=== PATIENT | male | born 1970 | race African-American/Black ===

== ENCOUNTER 2025-05-25 08:51 | Outpatient (CLI) | payer BC, SELFPAY ==
--- NOTE | ~2025-05-25 | XR_ITS ---
Right Shoulder Technique: AP and axillary views were obtained. Clinical History: Pain Findings: No fracture or dislocation is seen. Osseous alignment is anatomic. The glenohumeral and acr omioclavicular joint spaces are preserved. Soft tissues are unremarkable. Impression: Unremarkable right shoulder radiographs. Reviewed, dictated and finalized at [facility]. Impression: Unremarkable right shoulder radiographs.
--- OUTSIDE RECORDS SUMMARY | 2025-05-25 09:19 | XMS_ITS | Encounter Summary ---
Author Organization [facility] Address [address] [place] [address] Care Team Providers Care Head Silverman Name Role Phone Zaid Napier MD Primary Care Provider Encounter Details Date Type Department Care Team (Late st Contact Info) Description 05/01/2005 Outpatient Historical [facility] Internal Medicine [address] [place] [phone] Zaid Napier MD [address] [place] [address] Social History Tobacco Use Types Packs/Day Years Used Date Smoking Tobacco: Never Assessed Sex and Gender Information Value Date Recorded Sex Assigned at Not on file 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 Gender Identity Not on file Sexual Orientation Not on file documented as of this encounter Plan of Treatment Upcoming Encounters Date Type Department Care Team (Late st Contact Info) Description 07/24/2025 3:00 PM CDT Office Visit [facility] [address] [place] [address] Zaid Napier MD [address] [place] [address] documented as of this encounter Visit Diagnoses Not on filedocumented in this encounter Care Teams Head Silverman Relationship Specialty Start Date End Date Zaid Napier MD [address] [facility] [address] [place] [address] PCP - General 06/11/06 documented as of this encounter
--- OUTSIDE RECORDS SUMMARY | 2025-05-25 09:19 | XMS_ITS | Encounter Summary ---
Author Organization [facility] Address [address] [place] [address] Care Team Providers Care Osteopathic Physician Name Role Phone Zaid Napier MD Primary Care Provider [phone] Encounter Details Date Type Department Care Team (Late st Contact Info) Description 05/17/2007 Outpatient Historical [facility] Internal Medicine [address] [place] [address] Zaid Napier MD [address] [place] [address] Social History Tobacco Use Types Packs/Day Years Used Date Smoking Tobacco: Never Assessed Sex and Gender Information Value Date Recorded Sex Assigned at Not on file 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 Gender Identity Not on file Sexual Orientation Not on file documented as of this encounter Last Filed Vital Signs Vital Sign Reading Time Taken Comments Blood Pressure 120/80 05/17/2007 4:15 PM CDT Pulse 67 05/17/2007 4:15 PM CDT Temperature - - Respiratory Rate - - Oxygen Saturation - - Inhaled Oxygen Concentration - - Weight 84.4 kg (186 lb) 05/17/2007 4:15 PM CDT Height - - Body Mass Index - - documented in this encounter Plan of Treatment Upcoming Encounters Date Type Department Care Team (Late st Contact Info) Description 07/24/2025 3:00 PM CDT Office Visit [facility] Primary Care [facility] Alcaraz [address] [place] [address] Zaid Napier MD [address] [place] [address] documented as of this encounter Visit Diagnoses Not on filedocumented in this encounter Care Teams Osteopathic Physician Relationship Specialty Start Date End Date Zaid Napier MD [address] [place] [phone] PCP - General 06/11/06 documented as of this encounter
--- OUTSIDE RECORDS SUMMARY | 2025-05-25 09:19 | XMS_ITS | Encounter Summary ---
[facility] Organization [facility] Address 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 Discussed treatment for outbreaks or suppression. Will avoid suppression at his request. Also, he does haveelevated LFTs which may make monitoring difficult. He will call on 07/12 with pharmacy number. [email or web address] 07/10/07 01:33 pm ADDITIONAL TEST REQUESTS/ORDERS: . 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 lamprl 07/12/07 11:36 am STAFF FOLLOW UP: Spoke with patient and gave the following message. Pharmacy number: [phone]. Left message on voice mail at pharmacy. Spoke with patient - aware/rll Electronically Signed by: Rosemarie Almanzar on Thursday, July 12, 2007 documented in this encounter Plan of Treatment Upcoming Encounters Date Type Department Care Team (Late st Contact Info) Description 07/24/2025 3:00 PM CDT Office Visit [facility] Primary Care [facility] [address] [place] [address] Zaid Napier MD [address] [place] [address] documented as of this encounter Visit Diagnoses Not on filedocumented in this encounter Care Teams Senior Clerk Relationship Specialty Start Date End Date Zaid Napier MD [address] [place] [address] PCP - General 06/11/06 documented as of this encounter
--- OUTSIDE RECORDS SUMMARY | 2025-05-25 09:19 | XMS_ITS | Encounter Summary ---
Author Organization [facility] Address 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 Gender Identity Not on file Sexual Orientation Not on file documented as of this encounter Plan of Treatment Upcoming Encounters Date Type Department Care Team (Late st Contact Info) Description 07/24/2025 3:00 PM CDT Office Visit [facility] [address] [place] [address] Zaid Napier MD [address] [place] [address] documented as of this encounter Visit Diagnoses Diagnosis Cervicalgia- Primary documented in this encounter Care Teams Hall Manager Relationship Specialty Start Date End Date Zaid Napier MD [address] [place] [address] PCP - General 06/11/06 documented as of this encounter
--- OUTSIDE RECORDS SUMMARY | 2025-05-25 09:19 | XMS_ITS | Encounter Summary ---
Author Organization [facility] Address [address] [place] [address] Care Team Providers Care Dining Service Supervisor Name Role Phone Zaid Napier MD Primary Care Provider [phone] Encounter Details Date Type Department Care Team (Late st Contact Info) Description 06/12/2006 Outpatient Historical [facility] Internal Medicine [address] [place] [phone] Zaid Napier MD [address] [place] [address] Social History Tobacco Use Types Packs/Day Years Used Date Smoking Tobacco: Never Assessed Sex and Gender Information Value Date Recorded Sex Assigned at Not on file 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 Gender Identity Not on file Sexual Orientation Not on file documented as of this encounter Last Filed Vital Signs Vital Sign Reading Time Taken Comments Blood Pressure 132/80 06/12/2006 3:00 PM CDT Pulse 74 06/12/2006 3:00 PM CDT Temperature - - Respiratory Rate - - Oxygen Saturation - - Inhaled Oxygen Concentration - - Weight 85.7 kg (189 lb) 06/12/2006 3:00 PM CDT Height - - Body Mass Index - - documented in this encounter Plan of Treatment Upcoming Encounters Date Type Department Care Team (Late st Contact Info) Description 07/24/2025 3:00 PM CDT Office Visit [facility] Primary Care OFallrosanne Alcaraz [address] [place] [address] Zaid Napier MD [address] [place] [address] documented as of this encounter Visit Diagnoses Not on filedocumented in this encounter Care Teams Dining Service Supervisor Relationship Specialty Start Date End Date Zaid Napier MD [address] [place] [address] PCP - General 06/11/06 documented as of this encounter
--- OUTSIDE RECORDS SUMMARY | 2025-05-25 09:19 | XMS_ITS | Encounter Summary ---
Author Organization [facility] Address [address] [place] [address] Care Team Providers Care Machine Feeder Raw Stock Name Role Phone Zaid Napier MD Primary Care Provider [phone] Encounter Details Date Type Department Care Team (Late st Contact Info) Description 07/14/2007 Orders Only [facility] Internal Medicine [address] [place] [address] Zaid Napier MD [address] [facility] [address] [place] [address] Social History Tobacco Use Types Packs/Day Years Used Date Smoking Tobacco: Never Assessed Sex and Gender Information Value Date Recorded Sex Assigned at Not on file 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 ALTERNATIVE PHONE NUMBER: [phone] WHO CALLED: Patient called. CURRENT ALLERGY LIST: NK PHARMACY NUMBER: [phone] PROBLEMS: CONGESTION: Patient complains of nasal congestion. COUGH:Patient complains of cough. productive cough - yellow. RUNNY NOSE: Patient complains of runny nose. yellow drainage. Allergy symptom: Sneezing, congestion. Denies any fever/chills. No sore throat. No ear pain. No wheezing. Duration x 7 days. Would like RX/rll SECTION 1: DOCTOR`S RESPONSE: rosalind 07/14/07 at 04:37 pm MEDICATIONS: Call in to Pharmacy ZITHROMAX Z-ALEN ORAL TABLET 250 MG, Per package direction, 1 Dispensed, status: NEW PRESCRIPTION, 07/14/2007. FINAL ACTION: lamprl 07/14/07 at 04:39 pm Spoke with patient 07/14/07 at 04:40 pm. patient aware/rll Called pharmacy at 07/14/07 at 04:39 pm. message on voice mail/rll Electronically Signed by: Rosemarie Almanzar on Thursday, July 14, 2007 documented in this encounter Plan of Treatment Upcoming Encounters Date Type Department Care Team (Late st Contact Info) Description 07/24/2025 3:00 PM CDT Office Visit [facility] Primary Care [facility] [address] [place] [address] Zaid Napier MD [address] [place] [address] documented as of this encounter Visit Diagnoses Not on filedocumented in this encounter Care Teams Machine Feeder Raw Stock Relationship Specialty Start Date End Date Zaid Napier MD [address] [facility] [address] PCP - General 06/11/06 documented as of this encounter
--- OUTSIDE RECORDS SUMMARY | 2025-05-25 09:19 | XMS_ITS | Encounter Summary ---
Author Organization [facility] Address [address] [place] [address] Care Team Providers Care Medication Technician Name Role Phone Zaid Napier MD Primary Care Provider Encounter Details Date Type Department Care Team (Latest Contact Info) Description 06/11/2006 Outpatient Historical [facility] Internal Medicine 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 Gender Identity Not on file Sexual Orientation Not on file documented as of this encounter Plan of Treatment Upcoming Encounters Date Type Department Care Team (Late st Contact Info) Description 07/24/2025 3:00 PM CDT Office Visit [facility] Primary Care OF[facility]on [address] [place] [address] Zaid Napier MD [address] [place] [address] documented as of this encounter Procedures Procedure Name Priority Date/Time Associated Diagnosis Comments HEPATITIS B SURFACE AB, QUAL Routine 06/11/2006 4:48 PM CDT HEPATITIS C ANTIBODY Routine 06/11/2006 4:48 PM CDT URINALYSIS W/REFLEX MICROSCOPIC Routine 06/11/2006 4:23 PM CDT PSA Routine 06/11/2006 4:23 PM CDT FERRITIN Routine 06/11/2006 4:23 PM CDT LIPID PANEL Routine 06/11/2006 4:23 PM CDT COMPREHENSIVE METABOLIC PANEL Routine 06/11/2006 4:23 PM CDT documented in this encounter Results * HEPATITIS B SURFACE AB (06/11/2006 4:48 PM CDT) HEPATITIS B SURFACE AB <5 mIU/mL INTERFACE SYSTEM Comment: ACCORDING TO CURRENT CDC GUIDELINES, VALUES GREATER THAN OR EQUAL TO 10 MIU/ML INDICATE IMMUNITY. Lab test performed by: [employer] [id number] COLE MCGREGOR MD 06/11/2006 4:48 PM CDT Zaid Napier MD CHEMISTRY ORDERABLES Final Re sult Performing Organization Address [facility] de Phone Number INTERFACE SYSTEM Refer to clinic/hospital department * HEPATITIS C ANTIBODY (06/11/2006 4:48 PM CDT) HEPATITIS C AB NON-REACT SONIA NON-REACT SONIA INTERFACE SYSTEM SIGNAL TO CUT OFF 0.13 <1.00 IN TERFACE SYSTEM Comment: [facility] test performed by: [facility] [id number] [place] [id number] COLE MCGREGOR MD 06/11/2006 4:48 PM CDT Zaid Napier MD CHEMISTRY ORDERABLES Final Re sult Performing Organization Address [facility]/ZIP Co de Phone Number INTERFACE SYSTEM Refer to clinic/hospital department * FERRITIN (06/11/2006 4:23 PM CDT) FERRITIN 334 30 - 400 ng/mL INTERFACE SYSTEM 06/11/2006 4:23 PM CDT Zaid Napier MD CHEMISTRY ORDERABLES Final Re sult Performing Organization Address [facility] Phone Number INTERFACE SYSTEM Refer to clinic/hospital department * URINALYSIS (06/11/2006 4:23 PM CDT) COLOR UA Yellow INTERFACE SYSTEM CLARITY UA Clear Clear INTERFACE SYSTEM SPECIFIC GRAVITY UA 1.005 1.001 - 1.035 INTERFACE SYSTEM PH UA 6.5 5.0 - 8.0 INTERFACE SYSTEM LEUKOCYTE ESTERASE UA Negative Negative INTERFACE SYSTEM NITRITE UA Negative Negative INTERFACE SYSTEM PROTEIN UA Negative Negative INTERFACE SYSTEM GLUCOSE UA Negative Negative INTERFACE SYSTEM KETONES UA Negative Negative INTERFACE SYSTEM UROBILINOGEN UA <1 <=1 mg/dL INTE RFACE SYSTEM BILIRUBIN UA Negative Negative INTERFA CE SYSTEM BLOOD UA Negative Negative INTERFACE SYSTEM 06/11/2006 4:23 PM CDT Zaid Napier MD URINE ORDERABLES Final Result Performing Organization Address [facility] INTERFACE SYSTEM Refer to clinic/hospital department * (ABNORMAL) COMPREHENSIVE METABOLIC PANEL (06/11/2006 4:23 PM CDT) GLUCOSE 89 65 - 99 mg/dL INTERFACE SYSTEM CREATININE 1.2 0.5 - 1.3 mg/dL INTERFACE SYSTEM ALKALINE PHOSPHATASE 88 40 - 129 U/L INTERFACE SYSTEM AST 39(H) 12 - 38 U/L INTERFACE SYSTEM ALT 59(H) 0 - 41 U/L INTERFACE SYSTEM TOTAL PROTEIN 8.2 6.3 - 8.6 g/dL INTERFACE SYSTEM ALBUMIN 4.8 3.4 - 4.8 g/dL INTERFACE SYSTEM BILIRUBIN TOTAL 0.5 0.2 - 1.0 mg/dL INTERFACE SYSTEM BUN 11 6 - 20 mg/dL INTERFACE SYSTEM SODIUM 139 135 - 145 mmol/L INTERFACE SYSTEM POTASSIUM 4.3 3.5 - 4.9 mmol/L INTERFACE SYSTEM CHLORIDE 99 96 - 108 mmol/L INTERFACE SYSTEM CO2 27 22 - 30 mmol/L INTERFACE SYSTEM CALCIUM 10.3(H) 8.6 - 10.2 mg/dL INTERFACE SYSTEM Comment:Verified by repeat a nalysis. 06/11/2006 4:23 PM CDT Zaid Napier MD CHEMISTRY ORDERABLES Final Re sult Performing Organization Address [facility] Phone Number INTERFACE SYSTEM Refer to clinic/hospital department * (ABNORMAL) LIPID PANEL (06/11/2006 4:23 PM CDT) CHOLESTEROL 284(H) 100 - 199 mg/dL INTERFACE SYSTEM TRIGLYCERIDE 92 10 - 149 mg/dL INTERFACE SYSTEM HDL 87(H) 40 - 59 mg/dL INTERFACE SYSTEM LDL CALCULATED 179(H) <=99 mg/dL INTERFACE SYSTEM CHOL/HDL RATIO 3.3 2.0 - 5.0 INTER FACE SYSTEM LIPID PANEL COMMENT See Below INTERFACE SYSTEM Comment: The adult ATP and pediatric NCEP classifications for lipids are available on the [facility] Intranet at: [email or web address] veterans [email or web address] georgia medical [email or web address] Select: Lab Policies and Procedures Select: Reference Ranges - Lipids 06/11/2006 4:23 PM CDT Zaid Napier MD CHEMISTRY ORDERABLES Final Re sult Performing Organization Address [facility] Phone Number INTERFACE SYSTEM Refer to clinic/hospital department * PSA (06/11/2006 4:23 PM CDT) PSA 0.3 0.0 - 4.0 ng/mL INTERFACE SYSTEM Comment:Performed on [employer] E170 System 06/11/2006 4:23 PM CDT Zaid Napier MD CHEMISTRY ORDERABLES Final Re sult Performing Organization Address [facility] Co de Phone Number INTERFACE SYSTEM Refer to clinic/hospital department documented in this encounter Visit Diagnoses Diagnosis Family history of malignant neoplasm of prostate- Primary documented in this encounter Care Teams Medication Technician Relationship Specialty Start Date End Date Zaid Napier MD [address] [facility] [address] [place] [phone] PCP - General 06/11/06 documented as of this encounter
--- OUTSIDE RECORDS SUMMARY | 2025-05-25 09:19 | XMS_ITS | Encounter Summary ---
Author Organization [facility] Address [address] [place] [address] Care Team Providers Care Platform Mill Supervisor Name Role Phone Zaid Napier MD Primary Care Provider Encounter Details Date Type Department Care Team (Late st Contact Info) Description 06/03/[address] 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 Gender Identity Not on file Sexual Orientation Not on file documented as of this encounter Plan of Treatment Upcoming Encounters Date Type Department Care Team (Late st Contact Info) Description 07/24/2025 3:00 PM CDT Office Visit [facility] [address] [place] [address] Zaid Napier MD [address] [place] [address] documented as of this encounter Visit Diagnoses Not on filedocumented in this encounter Care Teams Platform Mill Supervisor Relationship Specialty Start Date End Date Zaid Napier MD [address] [facility] [address] [place] [address] PCP - General 06/11/06 documented as of this encounter
--- OUTSIDE RECORDS SUMMARY | 2025-05-25 09:19 | XMS_ITS | Encounter Summary ---
Author Organization [facility] Address [address] [place] [address] Care Team Providers Care Nanofabrication Specialist Name Role Phone Zaid Napier MD Primary Care Provider Encounter Details Date Type Department Care Team (Late st Contact Info) Description 06/03/2007 Outpatient Historical [facility] Internal Medicine [address] [place] [address] Zaid Napier MD [address] [place] [address] Social History Tobacco Use Types Packs/Day Years Used Date Smoking Tobacco: Never Assessed Sex and Gender Information Value Date Recorded Sex Assigned at Not on file 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 Gender Identity Not on file Sexual Orientation Not on file documented as of this encounter Plan of Treatment Upcoming Encounters Date Type Department Care Team (Late st Contact Info) Description 07/24/2025 3:00 PM CDT Office Visit [facility] [address] [place] [address] Zaid Napier MD [address] [place] [address] documented as of this encounter Visit Diagnoses Not on filedocumented in this encounter Care Teams Nanofabrication Specialist Relationship Specialty Start Date End Date Zaid Napier MD [address] [facility] [address] [place] [address] PCP - General 06/11/06 documented as of this encounter
--- OUTSIDE RECORDS SUMMARY | 2025-05-25 09:19 | XMS_ITS | Encounter Summary ---
Author Organization [facility] Address 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 Gender Identity Not on file Sexual Orientation Not on file documented as of this encounter Plan of Treatment Upcoming Encounters Date Type Department Care Team (Late st Contact Info) Description 07/24/2025 3:00 PM CDT Office Visit [facility] Primary Care OFcameron Her [address] [place] [address] Zaid Napier MD [address] [place] [address] documented as of this encounter Procedures Procedure Name Priority Date/Time Associated Diagnosis Comments IRON PANEL Routine 07/24/2006 7:50 AM CDT HEPATITIS B SURFACE ANTIGEN Routine 07/24/2006 7:50 AM CDT SMOOTH MUSCLE ANTIBODY Routine 6 7:50 AM CDT HEPATITIS C ANTIBODY Routine 07/24/2006 7:50 AM CDT HEPATITIS B CORE IGM Routine 07/24/2006 7:50 AM CDT HEPATITIS A IGM Routine 07/24/2006 7:50 AM CDT CERULOPLASMIN Routine 07/24/2006 7:50 AM CDT CELIAC DISEASE ANTIBODIES Routine 07/24/2006 7:50 AM CDT ALPHA 1 ANTITRYPSIN Routine 07/24/2006 7 :50 AM CDT JOEY SCREEN W/REFLEX Routine 07/24/2006 7 :50 AM CDT FERRITIN Routine 07/24/2006 7:50 AM CDT documented in this encounter Results * IRON PANEL (07/24/2006 7:50 AM CDT) IRON 143 45 - 160 ug/dL INTERFACE SYSTEM TRANSFERRIN 229 200 - 360 mg/dL INTERFACE SYSTEM IRON % SATURATION 49 20 - 50 % INTERFACE SYSTEM TIBC 291 250 - 450 ug/dL INTERFACE SYSTEM 07/24/2006 7:50 AM CDT Daniel Llanos MD CHEMISTRY ORDERABLES Final Re sult Performing Organization Address City/State/[facility] Co de Phone Number INTERFACE SYSTEM Refer to clinic/hospital department * FERRITIN (07/24/2006 7:50 AM CDT) FERRITIN 304 30 - 400 ng/mL INTERFACE SYSTEM 07/24/2006 7:50 AM CDT us Daniel Llanos MD CHEMISTRY ORDERABLES Final Re sult Performing Organization Address City/State/[facility] Phone Number INTERFACE SYSTEM Refer to clinic/hospital department * ALPHA 1 ANTITRYPSIN (07/24/2006 7:50 AM CDT) ALPHA 1 ANTITRYPSIN 113 83 - 199 mg/dL INTERFACE SYSTEM Comment: Lab test performed by: [email or web address] [address] COLE MCGREGOR MD 07/24/2006 7:50 AM CDT Daniel Llanos MD CHEMISTRY ORDERABLES Final Re sult Performing Organization Address [facility] Phone Number INTERFACE SYSTEM Refer to clinic/hospital department * CERULOPLASMIN (07/24/2006 7:50 AM CDT) CERULOPLASMIN 36 18 - 36 mg/dL INTERFACE SYSTEM Comment: Lab test performed by: [email or web address] [address] COLE MCGREGOR MD 07/24/2006 7:50 AM CDT Daniel Llanos MD CHEMISTRY ORDERABLES Final Re sult Performing Organization Address [facility] Phone Number INTERFACE SYSTEM Refer to clinic/hospital department * (ABNORMAL) SMOOTH MUSCLE ANTIBODY (07/24/2006 7:50 AM CDT) SMOOTH MUSCLE AB (ACTIN) IGG 27(H) Units INTERFACE SYSTEM Comment: Reference Range: <20 NEGATIVE 20-30 WEAK POSITIVE >30 HIGH POSITIVE Anti-smooth muscle antibodies (Anti-SMA) were previously tested for by indirect immunofluorescence (IF) using rat stomach as antigen. The smooth muscle in these sections contains numerous proteins, including: microfilaments (which contain F-actin), intermediate filaments, and microtubules. Of these proteins, F-actin has the closest association with autoimmune hepatitis type 1 (AIH 1). To enhance our testing specificity for AIH type 1, immunofluorescence has been replaced by an MIRANDA based assay to purified F-actin. IgG antibodies to F-actin are present in approximately 75% of patients with AIH type 1, approximately 65% of patients with autoimmune cholangitis, approximately 30% of patients with primary biliary cirrhosis (PBS), and approximately 2% of healthy controls. High values are closely correlated with AIH type 1. Lab test performed by: [facility] [id number] [place] [address] Karina GUAMAN MD 07/24/2006 7:50 AM CDT Daniel Llanos MD CHEMISTRY ORDERABLES COM Eva l Result Performing Organization Address City/[facility] de Phone Number INTERFACE SYSTEM Refer to clinic/hospital department * CELIAC DISEASE ANTIBODIES (07/24/2006 7:50 AM CDT) TRANSGLUTAMINASE IGA AB <3 <5 U/mL INTERFACE SYSTEM Comment: Reference range: <5 U/mL Negative 5-8 U/mL Equivocal >8 U/mL Positive Lab test performed by: [facility] [address] STEPHEN FLETCHER MD GLIADIN IGA AB 5 <11 U/mL INTER FACE SYSTEM Comment: Reference Range: <11 U/mL Negative 11-17 U/mL Equivocal >17 U/mL Positive Lab test performed by: [facility] [address] STEPHEN FLETCHER MD IGA 197 81 - 463 mg/dL INTERFACE SYSTEM Comment: Lab test performed by: [facility] [address] STEPHEN FLETCHER MD 07/24/2006 7:50 AM CDT Daniel Llanos MD CHEMISTRY ORDERABLES Final Re sult Performing Organization Address [facility] Co de Phone Number INTERFACE SYSTEM Refer to clinic/hospital department * JOEY (07/24/2006 7:50 AM CDT) JOEY SCREEN NEGATIVE NEGATIVE INTERFACE SYSTEM Comment: [facility] [address] [place] [address] COLE MCGREGOR MD 07/24/2006 7:50 AM CDT us Daniel Llanos MD CHEMISTRY ORDERABLES Final Re sult Performing Organization Address [facility] Phone Number INTERFACE SYSTEM Refer to clinic/hospital department * HEPATITIS B CORE IGM (07/24/2006 7:50 AM CDT) HEPATITIS B CORE IGM NON-REACT SONIA NON-REACT SONIA INTERFACE SYSTEM Comment: Lab test performed by: [email or web address] [address] COLE MCGREGOR MD 07/24/2006 7:50 AM CDT us Daniel Llanos MD CHEMISTRY ORDERABLES Final Re sult Performing Organization Address [facility] Phone Number INTERFACE SYSTEM Refer to clinic/hospital department * HEPATITIS C ANTIBODY (07/24/2006 7:50 AM CDT) HEPATITIS C AB NON-REACT SONIA NON-REACT SONIA INTERFACE SYSTEM SIGNAL TO CUT OFF 0.06 <1.00 IN TERFACE SYSTEM Comment: Lab test performed by: [email or web address] [id number] MCGREGOR MD 07/24/2006 7:50 AM CDT us Daniel Llanos MD CHEMISTRY ORDERABLES Final Re sult Performing Organization Address [facility] Phone Number INTERFACE SYSTEM Refer to clinic/hospital department * HEPATITIS A IGM (07/24/2006 7:50 AM CDT) HEPATITIS A IGM NON-REACT SONIA NON-REACT SONIA INTERFACE SYSTEM Comment: Lab test performed by: [email or web address] [address] COLE MCGREGOR MD 07/24/2006 7:50 AM CDT us Daniel Llanos MD CHEMISTRY ORDERABLES Final Re sult Performing Organization Address [facility] Phone Number INTERFACE SYSTEM Refer to clinic/hospital department * HEPATITIS B SURFACE ANTIGEN (07/24/2006 7:50 AM CDT) HEPATITIS B SURFACE AG NON-REACT SONIA NON-REACT SONIA INTERFACE SYSTEM Comment: Lab test performed by: [facility] [address] [place] [address] COLE MCGREGOR MD 07/24/2006 7:50 AM CDT Daniel Llanos MD CHEMISTRY ORDERABLES Final Re sult INTERFACE SYSTEM Refer to clinic/hospital department documented in this encounter Visit Diagnoses Diagnosis Nonspecific elevation of levels of transaminase or lactic acid dehydrogenase (LDH)- Primary documented in this encounter Care Teams Epic Cupid Analyst Relationship Specialty Start Date End Date Zaid Napier MD [address] [facility] [address] [place] [address] PCP - General 06/11/06 documented as of this encounter
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
--- OUTSIDE RECORDS SUMMARY | 2025-05-25 09:19 | XMS_ITS | Encounter Summary ---
Author Organization [facility] Address [address] [place] [address] Care Team Providers Care Fish Cleaner Machine Tender Name Role Phone Zaid Napier MD Primary Care Provider [phone] Encounter Details Date Type Department Care Team (Late st Contact Info) Description 06/03/2007 Outpatient Historical [facility] Internal Medicine [address] [place] [address] Zaid Napier MD [address] [place] [address] Social History Tobacco Use Types Packs/Day Years Used Date Smoking Tobacco: Never Assessed Sex and Gender Information Value Date Recorded Sex Assigned at Not on file 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 Gender Identity Not on file Sexual Orientation Not on file documented as of this encounter Plan of Treatment Upcoming Encounters Date Type Department Care Team (Late st Contact Info) Description 07/24/2025 3:00 PM CDT [facility] [address] [place] [address] Zaid Napier MD [address] [place] [phone] documented as of this encounter Visit Diagnoses Not on filedocumented in this encounter Care Teams Fish Cleaner Machine Tender Relationship Specialty Start Date End Date Zaid Napier MD [address] [facility] [address] [place] [address] PCP - General 06/11/06 documented as of this encounter
--- OUTSIDE RECORDS SUMMARY | 2025-05-25 09:19 | XMS_ITS | Encounter Summary ---
Author Organization [facility] Address [address] [place] [address] Care Team Providers Care Knitting Machine Fixer Head Name Role Phone Zaid Napier MD Primary Care Provider [phone] Encounter Details Date Type Department Care Team (Late st Contact Info) Description 01/15/[address] 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 [address] [place] [address] Zaid Napier MD [address] [place] [address] documented as of this encounter Visit Diagnoses Not on filedocumented in this encounter Care Teams Knitting Machine Fixer Head Relationship Specialty Start Date End Date Zaid Napier MD [address] [facility] [address] [place] [address] PCP - General 06/11/06 documented as of this encounter
--- OUTSIDE RECORDS SUMMARY | 2025-05-25 09:19 | XMS_ITS | Clinical Summary ---
Author Organization [facility] Address [address] [place] [address] Care Team Providers Care Profile Grinder Name Role Phone Zaid Napier MD Primary Care Provider [phone] Source Comments [facility],non-owned Affiliates and Associated Physician Practices is amultiple site organization consisting of ambulatory clinics and hospital sitesin [place], [place], [place] and [place]. This disclosure is being madepursuant to the Care Everywhere program and may not contain all information available regarding this patient. Last updated 18.[facility] Quill Content Allergies No known active allergies Medications * Be aware that medications may not be up to date on this document. Alwaysverify current medications with the patient. allopurinol (Zyloprim) 100 MG tablet Take 1 (one) tablet by mouth once daily 4 Active amoxicillin-cla vulanate (Augmentin) 875-125 MG tablet Take 1 (one) tablet by mouth 2 times daily 4 Active azelastine (Optivar) 0.05 % ophthalmic solution 1 (one) drop 2 times daily BOTH EYES 4 Active cromolyn (Crolom) 4 % ophthalmic solution 1 (one) drop 5 times daily 3 Active cyclobenzaprine (Flexeril) 10 MG tablet 4 Active fluticasone propionate (Flonase) 50 MCG/ACT nasal spray [place] 2 (two) sprays into the nose once daily Active ketorolac (Toradol) 10 MG tablet 4 Active montelukast (Singulair) 10 MG tablet Take 1 (one) tablet by mouth once daily Active NIFEdipine CR osmotic 24hr (Procardia-XL) 30 MG tablet Take 1 (one) tablet by mouth once daily 4 Active rosuvastatin (Crestor) 10 MG tablet Take 1 (one) tablet by mouth once daily 4 Active sildenafil (Revatio) 20 MG tablet TAKE 1 UP TO 5 TABLETS BY MOUTH DAILY NEEDED FOR INTERCOURSE 3 Active tadalafil (Cialis) 20 MG tablet TAKE 1 TABLET BY MOUTH EVERY 3 DAYS NEEDED 4 Active Active Problems Problem Noted Date Diagnosed Date Benign prostatic hyperplasia with urinary freque ncy 12/12/2021 Change in bowel habit 08/13/2021 Allergies 03/01/2021 Hyperlipidemia 12/29/2019 Mild memory disturbance 12/29/2019 BPH without obstruction/lower urinary tract symp toms 08/25/2018 History of acute gouty arthritis 08/25/2018 ALEX (obstructive sleep apnea) 01/11/2016 Impotence of organic origin 07/02/2007 Family history of malignant neoplasm of prostate 05/01/2005 Pure hypercholesterolemia 05/01/2005 Genital herpes 08/26/2004 Social History Tobacco Use Types Packs/Day Years Used Date Smoking Tobacco: Every Day Cigars Passive Smoke Exposure: Never Smokeless Tobacco: Never Tobacco Cessation:Ready to Q uit: No; Counseling Given: No Alcohol Use Standard Drinks/Week Comments Yes 0 (1 standard drink = 0.6 oz pur e alcohol) PHQ-2 Answer Date Recorded Patient Health Questionnaire-2 Score 0 12/14/2024 Sex and Gender Information Value Date Recorded Sex Assigned at Not on file 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 Gender Identity Not on file Sexual Orientation Not on file Last Filed Vital Signs Vital Sign Reading Time Taken Comments Blood Pressure - - Pulse - - Temperature - - Respiratory Rate - - Oxygen Saturation - - Inhaled Oxygen Concentration - - Weight 86.2 kg (190 lb) 12/14/2024 10:54 AM SUGAR MILL WORKER Height 185.4 cm (6' 1) 12/14/2024 10:54 AM SUGAR MILL WORKER Body Mass Index 25.07 12/14/2024 10:54 AM SUGAR MILL WORKER Plan of Treatment Health Maintenance Due Date Last Done Comments RENETTA (AGES 45-75) - COLON CA SCREENING 1968 COLON MONITORING 1968 COLONOSCOPY - COLON CA SCREENING 1968 CT COLONOGRAPHY - COLON CA SCREENING 1968 Colorectal Cancer Screening 1968 FIT - COLON CA SCREENING 1968 FLEX SIG - COLON CA SCREENING 1968 HIV SCREENING 01/20/1983 HEPATITIS C SCREENING 01/16/1986 DTAP/TDAP/TD VACCINES (1 - Tdap) 01/20/1987 HEPATITIS B VACCINE (1 of 3 - 19+ 3-dose series) 01/20/1987 PNEUMOCOCCAL VACCINE 50+ (1 of 2 - PCV) 01/20/1987 ZOSTER VACCINE (1 of 2) 01/20/2018 COVID-19 VACCINE (3 - season) 2024 08/21/2021, 01/26/2021 SCREENING FOR DIABETES 12/14/2024 01/17/2020, 2019 INFLUENZA VACCINE (#1) 2025 , 08/21/2020, 08/24/2018, Additional history exists DEPRESSION SCREENING Completed 12/14/2024, 03/23/20 24 HIB VACCINE Aged Out No longer eligi ble based on patient's age to complete this topic HPV VACCINE Aged Out No longer eligi ble based on patient's age to complete this topic MENINGOCOCCAL (Group B) VACCINE SHARED DECISION-MAKING Aged Out No longer eligible based on patient's age to complete this topic MENINGOCOCCAL GROUPS A/C/Y/W VACCINE Aged Out No longer eligible based on patient's age to complete this topic Insurance ANTHEM Care Teams Profile Grinder Relationship Specialty Start Date End Date Zaid Napier MD [address] [place] [address] PCP - General Internal Medicine 03/07/24
--- OUTSIDE RECORDS SUMMARY | 2025-05-25 09:19 | XMS_ITS | Encounter Summary ---
Author Organization [facility] Address [address] [place] [address] Care Team Providers Care Salesperson Yard Goods Name Role Phone Zaid Napier MD Primary Care Provider Encounter Details Date Type Department Care Team (Late st Contact Info) Description 06/03/2006 Outpatient Historical [facility] Internal Medicine [address] [place] [address] Zaid Napier MD [address] [place] [address] Social History Tobacco Use Types Packs/Day Years Used Date Smoking Tobacco: Never Assessed Sex and Gender Information Value Date Recorded Sex Assigned at Not on file 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 Gender Identity Not on file Sexual Orientation Not on file documented as of this encounter Plan of Treatment Upcoming Encounters Date Type Department Care Team (Late st Contact Info) Description 07/24/2025 3:00 PM CDT Office [facility] [address] [place] [address] Zaid Napier MD [address] [place] [address] documented as of this encounter Visit Diagnoses Not on filedocumented in this encounter Care Teams Salesperson Yard Goods Relationship Specialty Start Date End Date Zaid Napier MD [address] [facility] [address] [place] [address] PCP - General 06/11/06 documented as of this encounter
--- OUTSIDE RECORDS SUMMARY | 2025-05-25 09:19 | XMS_ITS | Encounter Summary ---
Author Organization [facility] Address [address] [place] [address] Care Team Providers Care Epic Cadence Analyst Name Role Phone Zaid Napier MD Primary Care Provider [phone] Encounter Details Date Type Department Care Team (Late st Contact Info) Description 11/29/2004 Outpatient Historical [facility] Internal Medicine [address] [place] [address] Zaid Napier MD [address] [place] [phone] Social History Tobacco Use Types Packs/Day Years Used Date Smoking Tobacco: Never Assessed Sex and Gender Information Value Date Recorded Sex Assigned at Not on file 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 Gender Identity Not on file Sexual Orientation Not on file documented as of this encounter Plan of Treatment Upcoming Encounters Date Type Department Care Team (Late st Contact Info) Description 07/24/2025 3:00 PM CDT Office Visit [facility] [address] [place] [address] Zaid Napier MD [address] [place] [address] documented as of this encounter Visit Diagnoses Not on filedocumented in this encounter Care Teams Epic Cadence Analyst Relationship Specialty Start Date End Date Zaid Napier MD [address] [facility] [address] [place] [address] PCP - General 06/11/06 documented as of this encounter
--- OUTSIDE RECORDS SUMMARY | 2025-05-25 09:19 | XMS_ITS | Encounter Summary ---
Author Organization [facility] Address [address] [place] [address] Care Team Providers Care Wastewater Plant Civil Engineer Name Role Phone Zaid Napier MD Primary Care Provider [phone] Encounter Details Date Type Department Care Team (Late st Contact Info) Description 07/02/2007 Outpatient Historical [facility] Internal Medicine 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 Gender Identity Not on file Sexual Orientation Not on file documented as of this encounter Last Filed Vital Signs Vital Sign Reading Time Taken Comments Blood Pressure 120/76 07/02/2007 4:00 PM CDT Pulse 77 07/02/2007 4:00 PM CDT Temperature 36.5 C (97.7 F) 07/02/2007 4:00 PM CDT Respiratory Rate - - Oxygen Saturation - - Inhaled Oxygen Concentration - - Weight 82.1 kg (181 lb) 07/02/2007 4:00 PM CDT Height - - Body Mass Index - - documented in this encounter Plan of Treatment Upcoming Encounters Date Type Department Care Team (Late st Contact Info) Description 07/24/2025 3:00 PM CDT [facility] Her [address] [place] [address] Zaid Napier MD [address] [place] [phone] documented as of this encounter Visit Diagnoses Not on filedocumented in this encounter Care Teams Wastewater Plant Civil Engineer Relationship Specialty Start Date End Date Zaid Napier MD [address] [place] [phone] PCP - General 06/11/06 documented as of this encounter
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
--- OUTSIDE RECORDS SUMMARY | 2025-05-25 09:19 | XMS_ITS | Encounter Summary ---
Author Organization [facility] Address [address] [place] [address] Care Team Providers Care Bass Guitar Teacher Name Role Phone Zaid Napier MD Primary Care Provider [phone] Encounter Details Date Type Department Care Team (Late st Contact Info) Description 08/26/2004 Outpatient Historical [facility] Internal Medicine [address] [place] [address] Zaid Napier MD [address] [place] [address] Social History Tobacco Use Types Packs/Day Years Used Date Smoking Tobacco: Never Assessed Sex and Gender Information Value Date Recorded Sex Assigned at Not on file 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 Gender Identity Not on file Sexual Orientation Not on file documented as of this encounter Plan of Treatment Upcoming Encounters Date Type Department Care Team (Late st Contact Info) Description 07/24/2025 3:00 PM CDT Office Visit [facility] [address] [place] [address] Zaid Napier MD [address] [place] [address] documented as of this encounter Visit Diagnoses Not on filedocumented in this encounter Care Teams Bass Guitar Teacher Relationship Specialty Start Date End Date Zaid Napier MD [address] [facility] [address] [place] [address] PCP - General 06/11/06 documented as of this encounter
--- OUTSIDE RECORDS SUMMARY | 2025-05-25 09:19 | XMS_ITS | Encounter Summary ---
Author Organization [facility] Address 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 Gender Identity Not on file Sexual Orientation Not on file documented as of this encounter Plan of Treatment Upcoming Encounters Date Type Department Care Team (Late st Contact Info) Description 07/24/2025 3:00 PM CDT Office Visit [facility] [address] [place] [address] Zaid Napier MD [address] [place] [address] documented as of this encounter Visit Diagnoses Diagnosis Nonspecific elevation of levels of transaminase or lactic acid dehydrogenase (LDH)- Primary documented in this encounter Care Teams Channel Rougher Relationship Specialty Start Date End Date Zaid Napier MD [address] [place] [phone] PCP - General 06/11/06 documented as of this encounter
--- OUTSIDE RECORDS SUMMARY | 2025-05-25 09:19 | XMS_ITS | Encounter Summary ---
Author Organization [facility] Address 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 We had agreed to try to culture these if they were present. There was discomfort and burning in the area before the rash appeared. CURRENT MEDICATION LIST: HYDROCODONE-ACETAMINOPHEN ORAL TABLET 5-500 MG, 1 Every Four Hours, As Needed VIAGRA ORAL TABLET 50 MG, One daily as directed CURRENT ALLERGY LIST: NKDA ROS: : See HISTORY OF PRESENT ILLNESS. PAST MEDICAL HISTORY: MEDICAL: Hypercholesterolemia., elevated LFTS, HSV PHYSICAL EXAMINATION: CONSTITUTIONAL: GENERAL APPEARANCE: -Armenian male, in no acute distress. GENITOURINARY: PHALLUS: There is a crop of vesicles at the base of the penis on the right dorsolateral penis at the base. There are several of these. ASSESSMENT/PLAN: 054.10-GENITAL HERPES SIMPLEX ASSESSMENT: I think this is likely genital herpes. With verbal consent, 2 of these lesions were unroofed with a sterile needle and the fluid was sent for viral culture. 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 He would like a prescription. He tolerated the medication well and will give him a supply of Viagra. MEDICATIONS: VIAGRA ORAL TABLET 50 MG, One daily as directed, 6 Dispensed, 5 Fills, status: NEW PRESCRIPTION, 07/02/2007. REPEAT VITAL SIGNS: BLOOD PRESSURE: 120/76. Left Arm Sitting Electronically Signed by: Zaid Napier MD on Thursday, July 05, 2007 documented in this encounter Plan of Treatment Upcoming Encounters Date Type Department Care Team (Late st Contact Info) Description 07/24/2025 3:00 PM CDT Office Visit [facility] Primary Care [facility] [address] [place] [phone] Zaid Napier MD [address] [place] [address] documented as of this encounter Visit Diagnoses Not on filedocumented in this encounter Care Teams Permastone Applicator Relationship Specialty Start Date End Date Zaid Napier MD [address] [place] [phone] PCP - General 06/11/06 documented as of this encounter
== END 2025-05-25 08:52 | disposition home or self-care (01) ==
PROVIDERS: Visit Provider Orthopaedic Surgery
DX: M25.511 Pain in right shoulder (principal)
CPT/HCPCS: 73030